=== PATIENT | female | born 1980 | race Caucasian/White ===

== ENCOUNTER 2022-09-03 10:27 | Outpatient (CLI) | payer BC, SELFPAY ==
[2022-09-03 11:37] LABS: Basophils Percent Auto 0.3 % (0.2-1.2); Eosinophils Absolute Auto 0.1 K/mm3 (0-0.3); Eosinophils Percent Auto 1.1 % (0-4.4); Hematocrit 40.4 % (37.0-47.0); Hemoglobin 13.7 g/dL (12.0-15.0); Immature Granulocyte Absolute 0.02 K/mm3 (0.00-0.031); Immature Granulocyte Percent A 0.3 % (0-0.5); Lymphocytes Absolute Auto 1.86 K/mm3 (0.9-3.2); Lymphocytes Percent Auto 29.7 % (18.3-44.2); Mean Corpuscular HGB Conc 33.9 g/dl (32-36); Mean Corpuscular Hemoglobin 31.1 pg (26-34); Mean Corpuscular Volume 91.6 fl (80-100); Mean Platelet Volume 9.1 fl (7.4-10.4); Monocytes Absolute Auto 0.4 K/mm3 (0.1-0.6); Monocytes Percent Auto 5.9 % (2.6-8.5); Neutrophils Absolute Auto 3.9 K/mm3 (1.3-6.7); Neutrophils Percent Auto 62.7 % (45.5-73.1); Platelet Count Result 236 k/mm3 (150-375); Red Blood Count 4.41 M/mm3 (4.2-5.4); Red Cell Distribution Width 12.1 % (11.5-14.5); White Blood Count 6.3 K/mm3 (4.5-10.0)
== END 2022-09-03 10:28 | disposition home or self-care (01) ==
PROVIDERS: PCP Family Medicine; Visit Provider Obstetrics & Gynecology
DX: N85.2 Hypertrophy of uterus (principal); Z01.818 Encounter for other preprocedural examination
CPT/HCPCS: 36415; 85025; 86850; 86900; 86901

== ENCOUNTER 2022-09-07 00:32 | Day surgery (SDC) | payer BC, SELFPAY ==
[2022-08-23 08:13] VITALS: BMI 25.5
--- NOTE | 2022-08-23 08:27 | PC.NURSE ---
Report to the Outpatient Waiting Room, entrance under the green pavilion located off [facility], at 0730 on 09/07/22. Planned Procedure Time: 0930. Time changes happen often and if your time is changed the preop area will call you the afternoon before. - You and your visitor will be asked to self-screen and do not enter if you have any COVID symptoms. - Only one visitor is requested with a max of two and NO children visitors are allowed at this time. - The patient visitor may be requested to leave or wait in car when not with patient due to distancing restrictions. - A mask is optional within the hospital. Patients may have clear liquids (water, carbonated beverages, clear teas, apple juice) until 3 hours prior to surgery with a maximum of 20 ounces. - No food from midnight until time of surgery Take the following medications with a SIP of water the morning of surgery: Paroxetine and Levothyroxine Medications to discontinue per physician N/A Date to take last dose Please no make-up, nail tajik, hairspray, perfume, deodorant, or body powder the day of surgery. No jewelry (including any body piercings) or valuables the day of surgery, leave them at home. Please take a shower or bath the night before, or the morning of, surgery with an antibacterial soap. Wear comfortable, loose fitting clothing. - Jewelry must be removed prior to entering the operating room. Rings and piercings that are not removed may be cut off. - The hospital will not accept responsibility for valuables. - Please leave all valuables, including medications, at home the day of surgery. If you are going home after surgery, a licensed fuel truck driver must drive you home. - NO public transportation without another adult if you receive anesthesia. - We recommend that an adult stay with you for 24 hours following discharge. - We also recommend that you do not drive, make important decision, drink alcoholic beverages, or take any drugs that were not prescribed by your health care provider for at least 24 hours after your discharge time. Follow any additional instructions given to you from your surgeon. If you or anyone in your household have experienced Covid symptoms in the past week, please notify your surgeon or the nurse liaison at the phone number below for possible testing. Telephone instructions given to patient and asked if any additional questions and then verbalized understanding. Patient advised to call surgeon office or pre surgery nurse liaison [phone] if any additional questions.
--- NOTE | 2022-09-04 07:41 | PM.IMHP ---
H&P: HPI History of Present Illness Date/Time: 09/04/22 07:41 Chief Complaint: robotic total vaginal hysterectomy bilateral salpingectomy Narrative: is a 42-year-old female with symptomatic uterine fibroids. She has had heavy bleeding and failed ablation. She will undergo robotic hysterectomy bilateral salpingectomy. Risks and benefits reviewed including not exclusive of , aspiration pneumonia, bleeding, transfusion, perforation injury to bowel, bladder, ureters, or other internal organs with need for open laparotomy. She received the ACOG handout entitled hysterectomy as well as advancing and out. She had all questions answered and asked to proceed [facility] Social History Social History Smoking status: Never smoker Second hand tobacco smoke exposure: No Alcohol intake: current Drinks per week: 1 Substance use: never Spiritual care concerns: No Meds Home Medications and Allergies Home Medications Medication Instructions Recorded Confirmed Type cyanocobalamin (vitamin B-12) 1,000 mcg subcut MONTHLY 08/23/22 08/23/22 History 1,000 mcg/mL injection solution ibuprofen 800 mg tablet 800 mg PO Q8-12H PRN PAIN 08/23/22 08/23/22 History levothyroxine 112 mcg tablet 112 mcg PO DAILY 08/23/22 08/23/22 History (Synthroid) paroxetine HCl 30 mg tablet 30 mg PO DAILY 08/23/22 08/23/22 History semaglutide (weight loss) 2.4 2.4 mg subcut WEEKLY 08/23/22 08/23/22 History mg/0.75 mL subcutaneous pen injector (Weoctaviovy) trazodone 50 mg tablet 100 mg PO HS 08/23/22 08/23/22 History valacyclovir 500 mg tablet 500 mg PO BID PRN Anxiety 08/23/22 08/23/22 History Allergies Allergy/AdvReac Type Severity Reaction Status Date / Time No Known Allergies Verified 08/23/22 08:00 Exam Const: General: cooperative, healthy appearing and comfortable Nutritional Appearance: average body habitus Orientation/consciousness: oriented to person, oriented to place and oriented to time HENMT: Head: normal to inspection Neck: Neck: normal visual inspection Resp: Effort & Inspection: normal respiratory effort Cardio: Rate: regular rate Rhythm: regular rhythm Heart sounds: S1 normal heart sound present and S2 normal heart sound present GI: Inspection: normal to inspection : Speculum Exam - Vagina: normal appearance of the vagina Speculum Exam - Cervix: normal appearance of the cervix Bimanual exam- vagina & uterus: enlarged Bimanual Exam- Adnexa, other: normal adnexae Assessment and Plan Assessment and plan (1) Fibroid uterus: Code(s): D25.9 - Leiomyoma of uterus, unspecified Status: Acute (2) Vaginal bleeding: Code(s): N93.9 - Abnormal uterine and vaginal bleeding, unspecified Status: Acute (3) Pelvic pain: Code(s): R10.2 - Pelvic and perineal pain Status: Acute Plan robotic total hysterectomy and bilateral salpingectomy
[2022-09-07] VITALS (13 sets, daily range): BP systolic 100–135; BP diastolic 49–78; PULSE 68–107; RESP 12–18; TEMP 36.2–37.7; O2SAT 93–100
[2022-09-07] MEDS: ACETAMINOPHEN 500 MG TABLET 1000 MG PO (06:26)
[2022-09-07] MEDS: LACTATED RINGERS 1,000 ML 30 ML IV CONT ×2 (06:35→08:43)
--- NOTE | 2022-09-07 06:45 | WPDANESEPPF ---
Anes - Initial Pre Proc Eval Procedure: Operation Date: 09/07/22 07:30 Proposed Procedures p Robotic Assisted Total Vaginal Hysterectomy with Bilateral Salpingectomy - Luis Fernando Pate MD Date/Time: 09/07/22 06:45 Surgeon: Luis Fernando Pate MD Pre Op Diagnosis: excessive bleeding, pelvic pain, enlarged uterus, Patient Data Age: 42 Gender: F Height: 1.73 m Weight: 76.2 kg Allergies Allergy/AdvReac Type Severity Reaction Status Date / Time No Known Allergies Allergy Verified 09/07/22 06:22 Home Medications Medication Instructions Recorded Confirmed Type cyanocobalamin (vitamin B-12) 1,000 mcg subcut MONTHLY 08/23/22 09/07/22 History 1,000 mcg/mL injection solution ibuprofen 800 mg tablet 800 mg PO Q8-12H PRN PAIN 08/23/22 09/07/22 History levothyroxine 112 mcg tablet 112 mcg PO DAILY 08/23/22 09/07/22 History (Synthroid) paroxetine HCl 30 mg tablet 30 mg PO DAILY 08/23/22 09/07/22 History semaglutide (weight loss) 2.4 2.4 mg subcut WEEKLY 08/23/22 09/07/22 History mg/0.75 mL subcutaneous pen injector (Wegovy) trazodone 50 mg tablet 100 mg PO HS 08/23/22 09/07/22 History valacyclovir 500 mg tablet 500 mg PO BID PRN Anxiety 08/23/22 09/07/22 History Patient hx anesthesia problems: none Family hx anesthesia problems: none Results Review: All pre-operative results and documents have been reviewed as part of the pre-operative evaluation. FOR[facility]LY [facility] Past Medical History Medical History (Updated 09/07/22 @ 06:46 by Luis Fernando Buckner MD) HTN (hypertension) Hypothyroidism Surgical History Surgical History (Updated 09/07/22 @ 06:46 by Luis Fernando Buckner MD) S/P gastric sleeve procedure Social History Social History Smoking status: Never smoker Second hand tobacco smoke exposure: No Alcohol intake: current Drinks per week: 1 Substance use: never Living arrangements: with family Spiritual care concerns: No Anes - Eval Final PreProcedure Day of Procedure 09/07/22 06:45 Patient weight: normal Heart: regular rate and rhythm Lungs: clear to auscultation Airway: Mallampati scale class II Neurological: alert and oriented Last oral intake: >/= 8 hours ASA classification: II Emergent: no Anesthetic plan: proceed Anesthesia type and monitoring: general ETT and standard monitoring Results Review: All pre-operative results and documents have been reviewed as part of the pre-operative evaluation. Informed Consent: The patient's anesthetic plan and its attendant risks and benefits were discussed with the patient/family/POA. Questions were solicited and answers provided to the satisfaction of the patient/family/POA.
--- NOTE | 2022-09-07 06:50 | WPDHPUPDATE1 ---
History and Physical Update Update Date/Time: 09/07/22 06:50 History and Physical has been reviewed, including an updated exam of the patient. There are NO changes in the patient's condition. Risks, benefits, and alternatives have been discussed and questions answered. Patient agrees to proceed with procedure.
[2022-09-07] MEDS: KETOROLAC 15 MG/ML VIAL (*BKC) IV PUSH (07:20)
[2022-09-07] MEDS: ceFAZolin 2 GM/D5W 50 ML 2 GM/50 ML BAG IVPB (07:27)
--- NOTE | 2022-09-07 08:27 | W.PM.PROC2 ---
Procedure Note - Detailed Date of Procedure 09/07/22 Pre-op Diagnosis excessive bleeding, pelvic pain, enlarged uterus, Post-op Diagnosis Same Procedure Performed Robotic total vaginal hysterectomy and bilateral salpingectomies Surgeon Luis Fernando Pate MD Energy Consultant alberta cooney Anesthesia General Indications this is a 42-year-old female with pelvic pain and enlarged uterus with bleeding refractory to medical therapy Findings large fibroid uterus. Tubes status post tubal ligation. Normal-appearing ovaries Description of Procedure patient was prepped draped in the normal sterile fashion placed in the dorsal lithotomy position. Under excellent general trach anesthesia weighted speculum placed in posterior fornix vagina. Anterior lip of the cervix grasped with single-tooth tenaculum and the uterus sounded to 10cm. Serial dilatation with fragmented dilators performed. This followed by passage of the 10. DILLAN and the 2. 0.5 cold cup. Next the 16 Hebrew catheter was placed in the remainder the instruments removed. Gloves were changed A supraumbilical incision made the Veress needle passed in the abdomen. Abdomen filled with CO2 gas [id number]. The 8mm trocar advanced in the abdomen. Downside visualized no injury seen. Gas reattached. Patient placed in Trendelenburg. left and right lateral quadrant incisions made and the 8mm trocars advanced under direct visualization assuring no injury. A right upper quadrant incision made the 8mm trocar advanced under direct visualization assuring no injury. The robot was docked. Attention was turned to the guidance counselor. The left round ligament was grasped, burned, cut. Anteriorly a bladder flap was formed by sharply dissecting the peritoneum and sharply to reflecting the bladder caudally away from the cervix and uterus to the opposite round ligament which was clamped, burned, cut. Next the fallopian tubes were removed they were piecemeal. The distal portion was cut and passed off through the right upper quadrant incision. The proximal portion was incised away from the ovarian complex and left attached to the uterine origin. In like fashion this was performed on the right fallopian tube. Next the left utero-ovarian ligament was skeletonized conserving the left ovary clamping burning cutting and bringing this to level of previous cut round ligament. The right ovary was conserved by sharply dissecting the utero-ovarian ligament on the right clamping burning cutting and bringing this to the level of previously cut round ligament. The cardinal broad ligaments were then serially skeletonized on the left clamping burning cutting hugging the cervix and uterus until the large tortuous uterine vessels were seen on the left. These were individually clamped, burned, cut. The cardinal broad ligaments on the right were serially skeletonized clamping burning cutting and hugging the cervix and uterus until the uterine vessels could be seen on the right these were individually clamped, burned, cut. Excellent blanching of the uterus was seen and a colpotomy incision was made. Cervix uterus and tubes were then removed through the vagina. The vagina was then closed with continuous running 0V lock from lateral edge to lateral edge and back to the midline. Irrigation undertaken to clear and hemostasis was assured. Blood loss estimated 25cc. The robot was undocked. The gas removed from the abdomen. The trocars removed and the incisions closed with 4-0 Monocryl and glue. The patient was awakened and went to recovery in satisfactory condition. All sponge, needle, instrument counts were correct. There were no immediate complications Estimated Blood Loss 25 Drains No Packing No Pathology Yes Complications No immediate complications Condition Stable Disposition PACU
[2022-09-07] MEDS: MEPERIDINE HCL INJ (*CRX) 50 MG/ML AMPUL 25 MG IV PUSH (09:33)
[2022-09-07] MEDS: DEXTROSE 5%/LACTATED RINGERS 1,000 ML 125 ML IV CONT (11:02)
[2022-09-07] MEDS: KETOROLAC 30 MG/ML VIAL (*BKC) IV PUSH (12:26)
--- NOTE | 2022-09-07 15:50 | ADMGEN ---
1041-This patient, Sunshine Maki, was admitted to OB 2nd Floor Room 287-00. Patient/family oriented to hospital policies and general routines including ID bracelet, bed and alarms, visiting hours, pain management, procedures, bathroom and other care routines, personal items, smoking policy, room service/diet, and visiting hours. Information on how to activate the Rapid Response Team has been discussed. Patient/Family are encouraged to report perceived risks to care and to ask questions if they do not understand what they are told or what they should do.
[2022-09-07] MEDS: DOCUSATE SODIUM 100 MG CAPSULE PO (16:56)
[2022-09-07] MEDS: HYDROcodone/acetaminophen (*CRX) 5-325 MG TABLET 1 TAB PO (16:56)
[2022-09-07] MEDS: SIMETHICONE 80 MG TAB.CHEW PO (19:03)
[2022-09-07] MEDS: IBUPROFEN 600 MG TABLET PO (19:03)
[2022-09-07] MEDS: HYDROcodone/acetaminophen (*CRX) 10-325 MG TABLET 1 TAB PO (21:14)
[2022-09-08] VITALS: BP 108/61; PULSE 78; RESP 18; TEMP 37
[2022-09-08] MEDS: SIMETHICONE 80 MG TAB.CHEW PO ×2 (01:26→08:35)
[2022-09-08] MEDS: IBUPROFEN 600 MG TABLET PO ×2 (01:26→08:33)
[2022-09-08] MEDS: HYDROcodone/acetaminophen (*CRX) 10-325 MG TABLET 1 TAB PO ×3 (01:27→12:34)
[2022-09-08 04:00] VITALS: BP 104/60; PULSE 69; RESP 18; TEMP 36.9
[2022-09-08 06:32] LABS: Basophils Percent Auto 0.2 % (0.2-1.2); Eosinophils Absolute Auto 0.1 K/mm3 (0-0.3); Eosinophils Percent Auto 0.6 % (0-4.4); Hematocrit 36.6 % (37.0-47.0); Hemoglobin 12.2 g/dL (12.0-15.0); Immature Granulocyte Absolute 0.03 K/mm3 (0.00-0.031); Immature Granulocyte Percent A 0.3 % (0-0.5); Lymphocytes Percent Auto 24.4 % (18.3-44.2); Mean Corpuscular HGB Conc 33.3 g/dl (32-36); Mean Corpuscular Hemoglobin 31.5 pg (26-34); Mean Corpuscular Volume 94.6 fl (80-100); Mean Platelet Volume 9.6 fl (7.4-10.4); Monocytes Absolute Auto 0.8 K/mm3 (0.1-0.6); Monocytes Percent Auto 7.8 % (2.6-8.5); Neutrophils Absolute Auto 6.8 K/mm3 (1.3-6.7); Neutrophils Percent Auto 66.7 % (45.5-73.1); Platelet Count Result 226 k/mm3 (150-375); Red Blood Count 3.87 M/mm3 (4.2-5.4); Red Cell Distribution Width 12.1 % (11.5-14.5); White Blood Count 10.3 K/mm3 (4.5-10.0)
--- NOTE | 2022-09-08 07:45 | P.PNAN_ITS ---
Anes - Prog Note Post-Op Date/Time: 09/08/22 07:45 Cardiovascular status: normal Respiratory status: normal Airway patency: baseline Mental status: baseline Post-Op hydration status: normal Vital Signs: Last Vital Signs Temp 36.9 C 09/08/22 04:00 Pulse 69 09/08/22 04:00 Resp 18 09/08/22 04:00 BP 104/60 09/08/22 04:00 Pulse Ox 97 09/07/22 17:15 O2 Del Method Room Air 09/08/22 04:00 O2 Flow Rate 8 09/07/22 09:20 Pain Score (VAS): 11/23 I/O: Intake & Output 09/07/22 09/07/22 09/08/22 15:59 23:59 07:59 Intake Total 1500 2310 1000 Output Total 50 1450 700 Balance 1450 860 300 Laboratory Tests 09/08/22 04:44 09/08/22 04:44 WBC 10.3 H RBC 3.87 L Hgb 12.2 Hct 36.6 L MCV 94.6 MCH 31.5 MCHC 33.3 RDW 12.1 Plt Count 226 MPV 9.6 Immature Gran % (Auto) 0.3 Neut % (Auto) 66.7 Lymph % (Auto) 24.4 [place] % (Auto) 7.8 Eos % (Auto) 0.6 Baso % (Auto) 0.2 Lymph # (Auto) 2.50 [place] # (Auto) 0.8 H Eos # (Auto) 0.1 Baso # (Auto) 0.0 Abs Immat Gran (auto) 0.03 Absolute Neuts (auto) 6.8 H Absolute Nucleated RBC 0.0 Nucleated RBC % 0.0 Post-procedural complaints: none Patient Feedback: Patient satisfied with anesthetic care.
[2022-09-08 08:00] VITALS: BP 110/65; PULSE 73; RESP 16; TEMP 37; O2SAT 100
[2022-09-08] MEDS: ENOXAPARIN 40 MG/0.4 ML SYRINGE SUB-Q (08:35)
[2022-09-08] MEDS: DOCUSATE SODIUM 100 MG CAPSULE PO (08:35)
--- NOTE | 2022-09-08 11:44 | PM.GYNPNOP ---
ACUTE CARE PHYSICIAN - A/P Assessment and plan (1) Pelvic pain: Code(s): R10.2 - Pelvic and perineal pain Status: Acute Assessment and Plan: A: POD#1, s/p robotic assisted TVHBS. Doing well. P: Home to f/u 2 weeks. (2) Vaginal bleeding: Code(s): N93.9 - Abnormal uterine and vaginal bleeding, unspecified Status: Acute (3) Fibroid uterus: Code(s): D25.9 - Leiomyoma of uterus, unspecified Status: Acute Postoperative Procedures: Procedures Operation Date: 09/07/22 07:30 Actual Procedure Side Surgeon p Robotic Assisted Total Vaginal Hysterectomy with Bilateral Salpingectomy Bilateral Luis Fernando Pate MD Postoperative day: 1 Time Spent With Patient Time with patient: less than 15 minutes ACUTE CARE PHYSICIAN- PN:Subj Post-Op Subjective Date/time seen: 09/08/22 11:44 Interval history: Pain OK. Tolerating diet. Voiding. Would like to go home. Exam Narrative: AVSS I/O OK ABD soft, nontender. Incisions c/d/i. EXT nontender ACUTE CARE PHYSICIAN - PN: Obj Data Vital Signs Vital Signs: Vital Signs - 24 hr 09/07/22 15:00 09/07/22 17:15 09/07/22 19:00 Temperature 36.7 C 37.3 C Pulse Rate 76 76 68 Respiratory Rate 16 16 18 Blood Pressure 108/70 102/69 Pulse Oximetry 97 97 Oxygen Delivery Room Air 09/07/22 19:00 09/08/22 00:00 09/08/22 00:00 Temperature 37.0 C Pulse Rate 78 Respiratory Rate 18 Blood Pressure 108/61 Pulse Oximetry Oxygen Delivery Room Air Room Air 09/08/22 04:00 09/08/22 04:00 09/08/22 08:00 Temperature 36.9 C 37.0 C Pulse Rate 69 73 Respiratory Rate 18 16 Blood Pressure 104/60 110/65 Pulse Oximetry 100 Oxygen Delivery Room Air 09/08/22 08:00 Temperature Pulse Rate 73 Respiratory Rate 16 Blood Pressure Pulse Oximetry 100 Oxygen Delivery Room Air Intake/Output Intake/Output: Intake & Output 09/05/22 09/06/22 09/07/22 09/08/22 23:59 23:59 23:59 23:59 Intake Total 3810 1000 Output Total 1500 700 Balance 2310 300 Meds/Results Medications: Active Medications Generic Name Dose Route Start Last Admin Trade Name Freq PRN Reason Stop Dose Admin Hydrocodone Bitart/Acetaminophen 1 tab 09/07/22 10:36 09/07/22 16:56 Hydrocodone/Acetaminophen (*Crx) 5-325 Mg Tablet PO 1 tab Q3H PRN Administration Pain Rated 5 or Less Hydrocodone Bitart/Acetaminophen 1 tab 09/07/22 10:36 09/08/22 08:34 Hydrocodone/Acetaminophen (*Crx) 10-325 Mg Tablet PO 1 tab Q3H PRN Administration Pain Rated 6 or Greater Docusate Sodium 100 mg 09/07/22 10:36 09/07/22 16:56 Docusate Sodium 100 Mg Capsule PO 100 mg BID FRANCISCA Administration Enoxaparin Sodium 40 mg 09/07/22 10:36 09/08/22 08:35 Enoxaparin 40 Mg/0.4 Ml Syringe SUB-Q 40 mg DAILY FRANCISCA Administration Ibuprofen 600 mg 09/07/22 10:36 09/08/22 08:33 Ibuprofen 600 Mg Tablet PO 600 mg Q6H PRN Administration Cramping Ketorolac Tromethamine 30 mg 09/07/22 10:36 09/07/22 12:26 Ketorolac 30 Mg/Ml Vial (*Bkc) IV PUSH 09/12/22 10:35 30 mg Q6H PRN Administration Pain Rated 4-6 Naloxone HCl 0.1 mg 09/07/22 10:36 Naloxone Hcl 0.4 Mg/Ml Vial IV PUSH Q2M PRN Respiratory rate less than 10 Ondansetron HCl 4 mg 09/07/22 10:36 Ondansetron Inj 4 Mg/2 Ml Vial IV PUSH Q6H PRN Nausea And Vomiting Simethicone 80 mg 09/07/22 10:36 09/08/22 08:35 Simethicone 80 Mg Tab.Chew PO 80 mg Q2H PRN Administration Gas Labs 09/08/22 04:44 Labs: Laboratory Results - last 24 hr 09/08/22 04:44 WBC 10.3 H RBC 3.87 L Hgb 12.2 Hct 36.6 L MCV 94.6 MCH 31.5 MCHC 33.3 RDW 12.1 Plt Count 226 MPV 9.6 Immature Gran % (Auto) 0.3 Neut % (Auto) 66.7 Lymph % (Auto) 24.4 [place] % (Auto) 7.8 Eos % (Auto) 0.6 Baso % (Auto) 0.2 Lymph # (Auto) 2.50 [place] # (Auto) 0.8 H Eos # (Auto) 0.1 Baso # (Auto) 0.0 Abs Immat Gran (auto) 0.03 Absolute Neuts (auto) 6.8 H
--- NOTE | 2022-09-08 11:46 | PM.DS ---
DS: Admitting Diagnosis Discharge Date 09/08/22 Admitting Diagnosis Excessive vaginal bleeding DS: Discharge Diagnosis Discharge Diagnosis (1) Pelvic pain: Code(s): R10.2 - Pelvic and perineal pain Status: Acute (2) Vaginal bleeding: Code(s): N93.9 - Abnormal uterine and vaginal bleeding, unspecified Status: Acute (3) Fibroid uterus: Code(s): D25.9 - Leiomyoma of uterus, unspecified Status: Acute DS: Summary Hospital Course Hospital Course: She was admitted on the date of scheduled surgery. Please see op note. Postoperatively she did well. Was able to go home on POD1. DS: Data Data Completed and Pending Pending studies at discharge: Pending at discharge 09/07/22 08:21 Surgical [PTH] Routine Labs on day of discharge: Labs from last 24 hours 09/08/22 04:44 WBC 10.3 H RBC 3.87 L Hgb 12.2 Hct 36.6 L MCV 94.6 MCH 31.5 MCHC 33.3 RDW 12.1 Plt Count 226 MPV 9.6 Immature Gran % (Auto) 0.3 Neut % (Auto) 66.7 Lymph % (Auto) 24.4 [place] % (Auto) 7.8 Eos % (Auto) 0.6 Baso % (Auto) 0.2 Lymph # (Auto) 2.50 [place] # (Auto) 0.8 H Eos # (Auto) 0.1 Baso # (Auto) 0.0 Abs Immat Gran (auto) 0.03 Absolute Neuts (auto) 6.8 H Absolute Nucleated RBC 0.0 Nucleated RBC % 0.0 Discharge Plan Discharge Patient Disposition: Home, Self-Care Discharge Instructions: Call or return if temperature above 100.4? F, increased abdominal pain, increased vaginal bleeding or any new problems. Patient Instructions: Laparoscopic Hysterectomy (DC) Stand Alone Forms: General Discharge Instructions Follow-up/Referrals: Luis Fernando Gutierrez MD [Physician] - 2 Weeks Discharge Medications: New hydrocodone-acetaminophen 5-325 mg tablet 1 tablet PO Q4H PRN (Reason: pain) Qty: 20 0RF Continued trazodone 50 mg tablet 100 mg PO HS ibuprofen 800 mg tablet 800 mg PO Q8-12H PRN (Reason: PAIN) Label Comments: PT STATES HAS CONTINUED ROUTINE RX valacyclovir 500 mg tablet 500 mg PO BID PRN (Reason: Anxiety) paroxetine HCl 30 mg tablet 30 mg PO DAILY levothyroxine [Synthroid] 112 mcg tablet 112 mcg PO DAILY Wegovy 2.4 mg/0.75 mL pen injector 2.4 mg SUBCUT WEEKLY Rx Instructions: TAKES ON TUESDAYS cyanocobalamin (vitamin B-12) 1,000 mcg/mL Solution 1,000 mcg SUBCUT MONTHLY Label Comments: TAKES ON
== END 2022-09-08 12:45 | disposition home or self-care (01) ==
LOC: ANHSURGERY 06:52 → ANHOB2 10:37
PROVIDERS: PCP Family Medicine; Visit Provider Obstetrics & Gynecology
PROC: (CPT 58552; principal; 2022-09-07 07:30)
DX: D25.0 Submucous leiomyoma of uterus (principal); D25.1 Intramural leiomyoma of uterus; N93.9 Abnormal uterine and vaginal bleeding, unspecified; N83.8 Other noninflammatory disorders of ovary, fallopian tube and broad ligament; N87.9 Dysplasia of cervix uteri, unspecified; R10.2 Pelvic and perineal pain; I10 Essential (primary) hypertension; E03.9 Hypothyroidism, unspecified; Z98.84 Bariatric surgery status
CPT/HCPCS: 58552; S2900; 36415; 85025; 86850; 86900; 86901; 88307; 99199; A9270; J0690; J1100; J1170; J1650; J1885; J2175; J2250; J2405; J2704; J2710; J3010; J7030; J7120; J7121